=== PATIENT | male | born 1965 | race Hispanic/Latino ===

== ENCOUNTER → 2018-10-23 | Day surgery (SDC) | payer MEDICARE ==
[~2018-10-23] MED LIST: AMLODIPINE BESYL5 MG PO; FENTANYL CITRATE/PF 100MCG/2 ML INJ ONE; LEVOTHYROXINE75 MCG PO; LOVASTATIN40 MG PO; MIDAZOLAM HCL 2 MG/2 ML VIAL ONE; PROPOFOL IV EMULSION 10 MG/ML 50 ML VIAL ONE
--- OUTSIDE RECORDS SUMMARY | 2018-10-23 05:42 | XMS REPORT ---
Author [facility] Address Unknown Phone Unavailable Care Team Providers Care Cook Helper Meat Name Role Phone Unavailable Unavailable Problems This patient has no known problems. Allergies, Adverse Reactions, Alerts This patient has no known allergies or adverse reactions. Medications This patient has no known medications. Encounters Start Date/Time End Date/Time Encounter Type Admission Type Attending [facility] Facility Care Department Encounter ID 2018-03-06 00:00:00 2018-03-06 00:00:00 Outpatient [facility] [id number] 2018-02-20 07:54:07 2018-02-20 07:54:07 Outpatient [facility] [id number] 2018-02-18 00:00:00 2018-02-18 00:00:00 Outpatient [facility] [id number] 2018-02-13 00:00:00 2018-02-13 00:00:00 Outpatient [facility] [id number] 2018-02-07 07:05:32 2018-02-07 07:05:32 Outpatient [facility] [id number] 2017-10-11 00:00:00 2017-10-11 00:00:00 Outpatient [facility] [id number] 2017-10-08 08:59:50 2017-10-08 08:59:50 Outpatient [facility] [id number] 2017-09-13 07:00:29 2017-09-13 07:00:29 Outpatient [facility] [id number] 2017-06-21 07:10:23 2017-06-21 07:10:23 Outpatient [facility] [id number] 2017-06-11 12:16:27 2017-06-11 12:16:27 Outpatient [facility] [id number] 2017-06-11 11:11:30 2017-06-11 11:11:30 Outpatient [facility] [id number] 2017-04-16 00:00:00 2017-04-16 00:00:00 Outpatient [facility] [id number] 2017-03-28 00:00:00 2017-03-28 00:00:00 Outpatient [facility] [id number] 2017-03-21 00:00:00 2017-03-21 00:00:00 Outpatient [facility] [id number] 2017-03-13 00:00:00 2017-03-13 00:00:00 Outpatient [facility] [id number] 2017-03-11 07:01:35 2017-03-11 07:01:35 Outpatient [facility] [id number] 2014-07-27 14:02:01 2014-07-27 14:02:01 Outpatient [facility] [id number]
[2018-10-23 07:40] VITALS: BP 140/89
== END | disposition home or self-care (01) ==
LOC: OR 05:27
PROVIDERS: ATTEND Internal Medicine Gastroenterology
DX: Z12.11 Encounter for screening for malignant neoplasm of colon (principal); D12.3 Benign neoplasm of transverse colon; K64.8 Other hemorrhoids; K21.9 Gastro-esophageal reflux disease without esophagitis; Z71.3 Dietary counseling and surveillance; I10 Essential (primary) hypertension; E66.01 Morbid (severe) obesity due to excess calories; Z01.810 Encounter for preprocedural cardiovascular examination; Z68.32 Body mass index [BMI] 32.0-32.9, adult; Z85.819 Personal history of malignant neoplasm of unspecified site of lip, oral cavity, and pharynx
CPT/HCPCS: 45385; 88305; 93005; J2250; J2704; 45378